=== PATIENT | male | born 1990 | race Caucasian/White ===

== ENCOUNTER 2019-08-10 | Emergency (ER) | payer SELFPAY | END 2019-08-10 13:18 | disposition home or self-care (01) | DRG 605 | PROC: 0HQDXZZ Repair Right Lower Arm Skin, External Approach (ICD-10-PCS; principal; 2019-08-10) | DX: S51.011A Laceration without foreign body of right elbow, initial encounter (principal); W22.8XXA Striking against or struck by other objects, initial encounter; Y92.029 Unspecified place in mobile home as the place of occurrence of the external cause ==